=== PATIENT | male | born 1945 | race Caucasian/White ===

== ENCOUNTER 2019-07-24 09:38 | Day surgery (SDC) | payer MEDICARE ==
[~2019-07-24] VITALS: Ht 167.6 cm; Wt 73.5 kg
[~2019-07-24 09:38] MED LIST: ADV250INH INH; ASPI81TA26 PO; ATEN50TA2 PO; COLA100C5 PO; HYDR-2541 PO; HYDR-3713 PO; HYDR25TAB PO; OMEP-172 PO; OMEP-221 PO; RANI150T PO; ULTR50TA8 PO; VITA100066 PO
[2019-07-24] MEDS ORDERED: PROPOFOL 200 MG/20 ML VIAL As Ordered ONE (09:43)
[2019-07-24] MEDS ORDERED: LIDOCAINE 2% INJ 100 MG/5 ML SDV (FOR ANES.) As Ordered ONE (09:44)
[2019-07-24] MEDS ORDERED: NS 1,000 ML IV ONE (11:00)
--- NOTE | 2019-07-24 11:33 | ROOR ---
Patient Name: Abdi Rodgers Procedure Date: 07/24/2019 11:01 AM Date of : 1945 Age: 74 Room: [facility] Gender: Male Note Status: Finalized Procedure: Colonoscopy Indications: Screening for colorectal malignant neoplasm Providers: Ronnell TALAVERA MD Referring MD: KARIN HALL NP Requesting Provider: Medicines: Monitored Anesthesia Care Complications: No immediate complications. Procedure: Pre-Anesthesia Assessment: - The heart rate, respiratory rate, oxygen saturations, blood pressure, adequacy of pulmonary ventilation, and response to care were monitored throughout the procedure. The Colonoscope was introduced through the anus and advanced to the cecum, identified by appendiceal orifice and ileocecal valve. The colonoscopy was performed without difficulty. The patient tolerated the procedure well. The quality of the bowel preparation was good. Findings: The perianal and digital rectal examinations were normal. Seven sessile polyps were found in the sigmoid colon and ascending colon. The polyps were 4 to 6 mm in size. These polyps were removed with a cold snare. Resection and retrieval were complete. Multiple medium-mouthed diverticula were found in the sigmoid colon. Internal hemorrhoids were found during retroflexion. The hemorrhoids were medium-sized. The exam was otherwise without abnormality. Impression: - Seven 4 to 6 mm polyps in the sigmoid colon and in the ascending colon, removed with a cold snare. Resected and retrieved. - Diverticulosis in the sigmoid colon. - Internal hemorrhoids. - The examination was otherwise normal. Recommendation: - Repeat colonoscopy in 3 years for surveillance. Ronnell Talavera MD Ronnell TALAVERA MD 07/24/2019 11:33:22 AM Electronically signed by Ronnell TALAVERA MD Number of Addenda: 0 Note Initiated On: 07/24/2019 11:01 AM Estimated Blood Loss: Estimated blood loss: none.
[2019-07-24 11:50] VITALS: BP 114/72
== END 2019-07-24 12:08 | disposition home or self-care (01) ==
LOC: M OPP 09:38
PROVIDERS: ATTEND Internal Medicine Gastroenterology
DX: Z12.11 Encounter for screening for malignant neoplasm of colon (principal); D12.5 Benign neoplasm of sigmoid colon; D12.2 Benign neoplasm of ascending colon; K64.8 Other hemorrhoids; K57.30 Diverticulosis of large intestine without perforation or abscess without bleeding; Z79.82 Long term (current) use of aspirin; Z79.899 Other long term (current) drug therapy

== ENCOUNTER 2019-07-29 18:54 | Observation (INO) | payer MEDICARE ==
[~2019-07-29] VITALS: Ht 167.6 cm; Wt 68.7 kg
[2019-07-29] MEDS: DOCUSATE SODIUM 100 MG CAP PO SCH (00:47)
[~2019-07-29 18:54] MED LIST changes: -OMEP-172 PO; +OMEP1CAP73 PO
[2019-07-29] MEDS ORDERED: NS 500 ML IV ONE (19:45)
[2019-07-29 20:00] LABS: BASO % 0.1 % (0.0-1.0); EOS # 0.1 10^3/uL (0.0-0.5); EOS % 0.6 % (0.0-3.0); LYMPH # 1.6 10^3/uL (1.5-5.0); LYMPH % 19.8 % (24.0-44.0); MEAN CORPUSCULAR HEMOGLOBIN 28.6 pg (27.0-33.0); MEAN CORPUSCULAR HGB CONC 32.6 g/dl (32.0-36.5); MEAN CORPUSCULAR VOLUME 87.9 fl (80.0-96.0); MONO # 0.5 10^3/uL (0.0-0.8); NEUTROPHILS % 73.3 % (36.0-66.0); PLATELET COUNT, AUTOMATED 188 10^3/uL (150-450); RED BLOOD COUNT 4.89 10^6/uL (4.30-6.10); WHITE BLOOD COUNT 8.1 10^3/uL (4.0-10.0)
[2019-07-29] MEDS ORDERED: ADVAIR HFA 115/21MCG INHALER INH SCH (20:00)
[2019-07-29 20:12] LABS: INR 0.94; PARTIAL THROMBOPLASTIN TIME 28.7 SECONDS (25.0-38.4); PROTHROMBIN TIME 12.3 SECONDS (11.8-14.0)
[2019-07-29 20:19] LABS: BLOOD UREA NITROGEN 22 MG/DL (7-18); CALCIUM LEVEL 8.4 MG/DL (8.8-10.2); CARBON DIOXIDE LEVEL 25 MEQ/L (21-32); CHLORIDE LEVEL 106 MEQ/L (98-107); CREATININE FOR GFR 1.29 MG/DL (0.70-1.30); GLOMERULAR FILTRATION RATE 58.1 (>42); GLUCOSE, FASTING 129 MG/DL (70-100); POTASSIUM SERUM 3.6 MEQ/L (3.5-5.1); SODIUM LEVEL 138 MEQ/L (136-145)
[2019-07-29] MEDS ORDERED: PEPC1TAB5 PO (20:20)
[2019-07-29] MEDS ORDERED: NS 1,000 ML IV SCH (21:20)
[2019-07-29] MEDS ORDERED: MAALOX 30 ML SUSP *UDC PO PRN (21:30)
[2019-07-29] MEDS ORDERED: ACETAMINOPHEN TAB 650MG DOSE (2X325MG) PO PRN (21:30)
[2019-07-29] MEDS ORDERED: MOM 30ML SUSPENSION UDC PO PRN (21:30)
[2019-07-29] MEDS ORDERED: NS 1,000 ML IV ONE (21:30)
[2019-07-29] MEDS ORDERED: propofoL 200 MG/20 ML VIAL As Ordered ONE (21:43)
[2019-07-29] MEDS ORDERED: LIDOCAINE 2% INJ 100 MG/5 ML SDV (FOR ANES.) As Ordered ONE (21:47)
[2019-07-29] MEDS ORDERED: fentaNYL 100 MCG/2 ML INJECTION (J3010) As Ordered ONE ×2 (21:50→23:41)
--- NOTE | 2019-07-29 22:09 | HPEPDOC ---
[facility] Medical History & Physical Date of Admission Jul 29, 2019 Date of Service: Jul 29, 2019 History and Physical Patient is a 74-year-old male with past medical history of eczema/COPD not dependent on oxygen, hypertension, POD#5 status post colonoscopy presenting with bright red bleeding per rectum. Patient reports that earlier today he noticed bleeding around 17:00, called his administrative director and was instructed to come to the ED. During this time, he denies any lightheadedness, dizziness, abdominal pain, dysuria, but subsequently reports chills and anxiety. Did have an episode of lightheadedness in the ED while orthostatics were performed. In the ED, initially vital signs revealed afebrile, no tachycardia, blood pressure of 182/81, subsequent recheck of blood pressure reveals orthostatic hypotension and subsequently given IV fluids. He also had a few bowel movements that also were bright red blood with clots with gross blood on physical exam. H&P obtained by patient, and daughter present during interview. Labs include no leukocytosis, WBC of 8.1, hemoglobin 14.4 and hematocrit 43, platelets 188, BUN 22, use existing specimen elevated, creatinine 1.29, fasting glucose 129, lactic acid 2.1, calcium 8.4, coagulation factors grossly within normal limits. Chest x-ray and abdominal x-ray pending official read, chest x- ray appears to be NAD. Prior to my exam, patient had another gross bowel movement, GI was consulted, plan for colonoscopy later tonight. Vital signs stable. ROS: 10 point review systems negative except per above. PMH: See above. PSH: See above, circumcision in 1974, hernia repair x2 in 2000, complicated by testicular torsion status post left orchiectomy, tonsillectomy at age 66, facial skin biopsy suspicion for skin cancer 07/26/2019 Family history: Reviewed and noncontributory, patient has no family history of colon cancer, autoimmune GI diseases such as ulcerative colitis, but family history of leukemia, and lung cancer. Social history: Former tobacco use, quit 30+ years ago, former alcohol use, quit 15 years ago, no illicits, is , has 2 children, was a inside contractor sales by profession Medications: Reviewed Allergies: Phenobarbital: Hives PHYSICAL EXAMINATION: VITAL SIGNS: Please see below. GENERAL: male in No distress, able to speak in full sentences HEENT: Normocephalic, atraumatic, moist mucous membranes, Mallampati score 4, no pallor NECK: Supple CARDIOVASCULAR EXAMINATION: S1, S2 RESPIRATORY EXAMINATION: CTAB ABDOMINAL EXAMINATION: Soft, nontender, nondistended, slightly hyperactive bowel sounds EXTREMITIES: no edema SKIN: No rash NEUROLOGICAL EXAMINATION: Awake PSYCHIATRIC EXAMINATION: Anxious, appropriate affect Patient is a 74-year-old male with past medical history of eczema/COPD not dependent on oxygen, hypertension, status post colonoscopy , presenting with lower GI bleed. #lower GI bleed, consider secondary to status post cholecystectomy with polyp removal, medication induce, patient currently on aspirin. Will hold aspirin, GI was consulted, nothing by mouth last ate at 4 PM, monitor hemoglobin and hematocrit, gentle hydration IV fluids. Fall precautions. # reveals adenomatous polyps/tubular adenoma polyps on pathology s/p colonoscopy: obtain baseline CEA level. #Orthostatic hypotension/Hx of HTN: Hold blood pressure medications #GERD: Hold by mouth medications, start IV GI prophylaxis #COPD: Continue home meds DVT prophylaxis: SCDs, hold pharmacological DVT prophylaxis at this time due to GI bleed. Code full Vital Signs Vital Signs Date Time Temp Pulse Resp B/P (MAP) Pulse Ox O2 Delivery O2 Flow Rate FiO2 07/29/19 21:29 57 20 150/75 (100) 07/29/19 18:55 98.4 95 Room Air Laboratory Data Labs 24H Laboratory Tests 2 07/29/19 19:48: Immature Granulocyte % (Auto) 0.2, Neutrophils (%) (Auto) 73.3H, Lymphocytes (%) (Auto) 19.8L, Monocytes (%) (Auto) 6.0H, Eosinophils (%) (Auto) 0.6, Basophils (%) (Auto) 0.1, Neutrophils # (Auto) 6.0, Lymphocytes # (Auto) 1.6, Monocytes # (Auto) 0.5, Eosinophils # (Auto) 0.1, Basophils # (Auto) 0.0, Nucleated Red Blood Cells % (auto) 0.0, Prothrombin Time 12.3, Prothromb Time International Ratio 0.94, Activated Partial Thromboplast Time 28.7, Anion Gap 7L, Glomerular Filtration Rate 58.1, Lactic Acid Level 2.1*H, Calcium Level 8.4L CBC/BMP Laboratory Tests 07/29/19 19:48 Home Medications Scheduled Aspirin (Aspirin EC) 81 Mg Tab, 81 MG PO DAILY Atenolol (Atenolol) 50 Mg Tab, 50 MG PO DAILY Cholecalciferol (Vitamin D3) (Vitamin D3) 1,000 Unit Tab, 2,000 UNIT PO DAILY Famotidine (Pepcid) 20 Mg Tablet, 20 MG PO DAILY Hydrochlorothiazide (Hydrochlorothiazide) 25 Mg Tablet, 25 MG PO DAILY Omeprazole (Omeprazole) 40 Mg Capsule.dr, 40 MG PO DAILY Salmeterol/Fluticasone (Advair 250-50 Diskus) 14 Puff/Inhaler Aerp, 1 PUFF INH BID Allergies Coded Allergies: phenobarbital (Verified Allergy, Intermediate, HIVES, 07/09/19) A-FIB/CHADSVASC A-FIB History Current/History of A-Fib/PAF?: No MARCIE MCKINLEY MD Jul 29, 2019 21:31
[2019-07-29 23:00] LABS: ALBUMIN 3.4 GM/DL (3.2-5.2); ALT/SGPT 16 U/L (12-78); BILIRUBIN,DIRECT < 0.1 MG/DL (0.0-0.2); BILIRUBIN,TOTAL 0.1 MG/DL (0.2-1.0); TOTAL PROTEIN 6.7 GM/DL (6.4-8.2)
[2019-07-29] MEDS ORDERED: ONDANSETRON 4MG/2ML VIAL (J2405) As Ordered ONE (23:06)
[2019-07-29] MEDS ORDERED: LR 1,000 ML IV SCH (23:30)
[2019-07-29] MEDS ORDERED: ONDANSETRON 4MG/2ML VIAL (J2405) IV PRN (23:30)
[2019-07-29] MEDS: fentaNYL 100 MCG/2 ML INJECTION (J3010) IV PRN ×2 (23:42→23:47)
[2019-07-30] VITALS (7 sets, daily range): BP systolic 131–147; BP diastolic 65–78
[2019-07-30] MEDS ORDERED: ONDANSETRON 4MG/2ML VIAL (J2405) As Ordered ONE (00:18)
[2019-07-30] MEDS: PANTOPRAZOLE 40MG INJ (PROTONIX) (C9113) IV SCH ×2 (00:52→08:09)
[2019-07-30] MEDS ORDERED: NS 1,000 ML IV SCH (03:45)
[2019-07-30 04:43] LABS: HEMATOCRIT 38.1 % (42.0-52.0); HEMOGLOBIN 12.5 g/dl (13.5-17.5); MEAN CORPUSCULAR HEMOGLOBIN 28.9 pg (27.0-33.0); MEAN CORPUSCULAR HGB CONC 32.8 g/dl (32.0-36.5); PLATELET COUNT, AUTOMATED 169 10^3/uL (150-450); RED BLOOD COUNT 4.33 10^6/uL (4.30-6.10); WHITE BLOOD COUNT 15.9 10^3/uL (4.0-10.0)
[2019-07-30 05:08] LABS: BLOOD UREA NITROGEN 19 MG/DL (7-18); CALCIUM LEVEL 7.3 MG/DL (8.8-10.2); CARBON DIOXIDE LEVEL 25 MEQ/L (21-32); CHLORIDE LEVEL 107 MEQ/L (98-107); CREATININE FOR GFR 1.03 MG/DL (0.70-1.30); GLOMERULAR FILTRATION RATE > 60.0 (>42); GLUCOSE, FASTING 114 MG/DL (70-100); POTASSIUM SERUM 3.9 MEQ/L (3.5-5.1); SODIUM LEVEL 139 MEQ/L (136-145)
--- NOTE | 2019-07-30 08:00 | ROOR ---
Patient Name: Abdi Rodgers Procedure Date: 07/29/2019 10:04 PM Date of : 1945 Age: 74 Gender: Male Note Status: Finalized Procedure: Total Colonoscopy to Cecum Indications: Rectal bleeding Providers: Chidi Franco MD Referring MD: 2. Inpatient 2. Inpatient Requesting Provider: Medicines: General Anesthesia Complications: No immediate complications. Procedure: Pre-Anesthesia Assessment: - The heart rate, respiratory rate, oxygen saturations, blood pressure, adequacy of pulmonary ventilation, and response to care were monitored throughout the procedure. The Colonoscope was introduced through the anus and advanced to the cecum, identified by appendiceal orifice and ileocecal valve. The colonoscopy was performed without difficulty. The patient tolerated the procedure well. The quality of the bowel preparation was inadequate. Findings: The perianal and digital rectal examinations were normal. Non-bleeding internal hemorrhoids were found during retroflexion. The hemorrhoids were small and Grade I (internal hemorrhoids that do not prolapse). Multiple small and large-mouthed diverticula were found in the recto-sigmoid colon, sigmoid colon and descending colon. Red blood was found in the entire colon. The exam was otherwise without abnormality on direct and retroflexion views. Impression: - Preparation of the colon was inadequate. - Non-bleeding internal hemorrhoids. - Diverticulosis in the recto-sigmoid colon, in the sigmoid colon and in the descending colon. - Blood in the entire examined colon. - The examination was otherwise normal on direct and retroflexion views. - No specimens collected. - The exam was otherwise normal to the cecum. Recommendation: - Patient has a contact number available for emergencies. The signs and symptoms of potential delayed complications were discussed with the patient. Return to normal activities tomorrow. Written discharge instructions were provided to the patient. - High fiber diet. - [facility] to [facility] care. - Continue present medications. - The findings and recommendations were discussed with the referring physician. - The findings and recommendations were discussed with the patient's family. Chidi Franco MD Chidi Franco MD 07/30/2019 8:00:02 AM Electronically signed by Chidi Franco MD Number of Addenda: 0 Note Initiated On: 07/29/2019 10:04 PM Estimated Blood Loss: Estimated blood loss: none.
[2019-07-30] MEDS: DOCUSATE SODIUM 100 MG CAP PO SCH ×2 (08:09→20:09)
--- NOTE | 2019-07-30 08:14 | REP ---
Abdomen series: Three views. History: Rectal bleeding. Findings: Upright chest radiograph shows biapical pleuroparenchymal fibrosis and emphysematous changes. Pleural angles are sharp. No infiltrate is seen. No free subdiaphragmatic air is seen. Heart size is normal. Supine and erect views of the abdomen show hernia repair sutures over the suprapubic region. Bowel gas pattern is normal. Psoas margins and flank stripes are intact. No mass, organomegaly, or pathologic calcification is seen. No significant air fluid level is seen. Some vascular calcification is noted. Impression: No significant abnormality. Electronically Signed by Gonzalo Mendez MD 07/30/2019 08:06 A
--- NOTE | 2019-07-30 08:40 | IPN ---
DATE: 07/30/2019 Abdi is seen in progressive care unit (PCU). He is admitted with lower gastrointestinal (GI) bleed. He had a colonoscopy on 07/24/2019, had polyps removed. He presented with bright red blood per rectum yesterday. Looks to have had a colonoscopy last night in the operating room. No operative report but per the admission history and physical addendum no bleeding source was seen. The patient said he had a blood stool earlier this morning before getting up. Denies any fever, chills or abdominal pain. PHYSICAL EXAM: 141/70, pulse 67, respiratory rate 18, 94% oxygen saturation. Alert, conversant, in no distress. Lungs: Clear. Heart: Regular rhythm. Abdomen: Soft, nontender. No masses. No peripheral edema. IMPRESSION: 1. Lower GI bleed, probably diverticular. Certainly seems to be a lower GI source. Will stop the IV Protonix and put him on oral Protonix. He is well hydrated, so we can stop the IV fluids and put him on a diet advancing as tolerated. Serial complete blood counts (CBCs) have been ordered. 2. cytosis, probably reactive. No sign of active infection. 3. Chronic obstructive pulmonary disease (COPD). Continue his nebulized bronchodilator. Titrate oxygen if possible. Should be able to discharge tomorrow if he does not have any further significant rectal bleeding.
[2019-07-30] MEDS ORDERED: ONDANSETRON 4MG/2ML VIAL (J2405) IV PRN (10:30)
[2019-07-30] MEDS: atenoloL 50 MG TAB PO SCH (10:36)
[2019-07-30] MEDS: ADVAIR HFA 115/21MCG INHALER INH SCH ×2 (11:31→20:38)
[2019-07-30] MEDS: CALCIUM CARBONATE 500 MG CHEW U/D PO PRN (20:09)
[2019-07-31] VITALS: BP 130/59
[2019-07-31 04:00] VITALS: BP 129/62
[2019-07-31 06:14] LABS: HEMATOCRIT 36.5 % (42.0-52.0); HEMOGLOBIN 12.3 g/dl (13.5-17.5); MEAN CORPUSCULAR HEMOGLOBIN 29.6 pg (27.0-33.0); MEAN CORPUSCULAR HGB CONC 33.7 g/dl (32.0-36.5); PLATELET COUNT, AUTOMATED 173 10^3/uL (150-450); RED BLOOD COUNT 4.15 10^6/uL (4.30-6.10); WHITE BLOOD COUNT 7.8 10^3/uL (4.0-10.0)
[2019-07-31 06:38] LABS: BLOOD UREA NITROGEN 12 MG/DL (7-18); CALCIUM LEVEL 8.4 MG/DL (8.8-10.2); CARBON DIOXIDE LEVEL 26 MEQ/L (21-32); CHLORIDE LEVEL 108 MEQ/L (98-107); CREATININE FOR GFR 1.01 MG/DL (0.70-1.30); GLOMERULAR FILTRATION RATE > 60.0 (>42); GLUCOSE, FASTING 87 MG/DL (70-100); POTASSIUM SERUM 3.6 MEQ/L (3.5-5.1); SODIUM LEVEL 140 MEQ/L (136-145)
[2019-07-31] MEDS: ADVAIR HFA 115/21MCG INHALER INH SCH (07:43)
[2019-07-31 07:58] VITALS: BP 151/73
[2019-07-31] MEDS: atenoloL 50 MG TAB PO SCH (08:02)
[2019-07-31] MEDS: DOCUSATE SODIUM 100 MG CAP PO SCH (08:03)
[2019-07-31] MEDS ORDERED: PANTOPRAZOLE 40MG TAB (PROTONIX) PO SCH (09:00)
[2019-07-31] MEDS: CALCIUM CARBONATE 500 MG CHEW U/D PO PRN (09:57)
--- NOTE | 2019-07-31 10:28 | IPNPDOC ---
Subjective Date Seen The patient was seen on 07/31/19. Subjective Chief Complaint/HPI Resting in chair, at bedside. No GI bleed noted. No c/o abd pain. Tolerating diet. Objective Physical Examination General Exam: Positive: Alert, Cooperative, No Acute Distress Neck Exam: Positive: Supple, JVD Chest Exam: Positive: Clear to auscultation Heart Exam: Positive: Rate Normal Abdomen Exam: Positive: Normal bowel sounds, Soft; Negative: Tenderness Extremity Exam: Negative: Clubbing, Cyanosis, Edema, Normal pulses, Tenderness, Swelling, Other Assessment /Plan Assessment GI bleed following polypectomy - s/p c-scope with no findings of acute bleeding - stable hgb - home today - may resume baby asa in 4 days Plan/VTE VTE Prophylaxis Ordered?: No (gi bleed) Disposition home today VS, I&O, 24H, Fishbone Vital Signs/I&O Vital Signs Date Time Temp Pulse Resp B/P (MAP) Pulse Ox O2 Delivery O2 Flow Rate FiO2 07/31/19 07:58 97.8 60 18 151/73 (99) 94 Room Air 07/30/19 04:00 2.0 I&O- Last 24 Hours up to 6 AM 07/31/19 06:00 Intake Total 870 ml Output Total 1950 ml Balance -1080 ml Laboratory Data 24H LABS Laboratory Tests 2 07/31/19 05:49: Nucleated Red Blood Cells % (auto) 0.0, Anion Gap 6L, Glomerular Filtration Rate > 60.0, Calcium Level 8.4#L CBC/BMP Laboratory Tests 07/30/19 17:34 07/31/19 05:49 LONNIE URIBE MD Jul 31, 2019 10:28
--- NOTE | 2019-08-05 21:45 | DSES ---
DATE OF ADMISSION: 07/29/2019 DATE OF DISCHARGE: 07/31/2019 DISCHARGE DIAGNOSES: 1. Lower gastrointestinal (GI) bleed likely secondary to diverticular bleed. 2. Status post repeat colonoscopy. CONSULTANTS: On the case: Chidi Franco MD PROCEDURES PERFORMED: During this hospitalization: Colonoscopy. DISPOSITION: Patient is discharged home in stable condition. He is instructed to resume his baby aspirin in approximately 4 days and to followup with his primary care provider (PCP) in the next week. IMAGING STUDIES: Obtained during the patient's hospital stay were an abdominal x-ray which showed no significant abnormality. RELEVANT LABORATORIES: Are the following: Sodium 140, potassium 2.6, chloride 180, bicarbonate 26, BUN 12, creatinine 1, calcium 8.4, CEA level was 1.6, lactic acid was 2.1 and improved to 1.3 with hydration. Coagulations were normal. Hemoglobin was 12.3, hematocrit 36.5, platelet counts were 173,000, white blood cell count was 7.8. HOSPITAL COURSE: Mr. Rodgers is a very pleasant, 74-year-old gentleman who had undergone an elective outpatient colonoscopy 5 days prior to admission with a polypectomy. Patient subsequently presented to the hospital with complaints of bright red blood per rectum. In the emergency room (ER) department, he was noted to have hematochezia. Initially, his vital signs were hemodynamically stable, however when they were rechecked the patient was noted to be orthostatic. He was given IV fluids. Lactic acid was noted to be mildly elevated and improved with hydration. The patient did not require any transfusion during his hospital stay, his aspirin was held. His CBC was followed serially. Dr. Franco was contacted. Patient was taken to the operating room (OR) for endoscopy. He was found to have blood throughout his whole colon, but no evidence of any active bleeding. Post-procedure patient was monitored with serial CBCs which remained stable and he was started on a diet which was advanced without complications. Patient was then discharged home in stable condition. Total of 30 minutes was spent completing all discharge paperwork.
== END 2019-07-31 13:50 | disposition home or self-care (01) ==
LOC: M ED 18:54 → M ED INP 18:55 → ENRESERV 21:42 → M PCU 07-30 00:26
PROVIDERS: ADMIT Family Medicine; ATTEND Family Medicine
DX: K62.5 Hemorrhage of anus and rectum (principal); K64.0 First degree hemorrhoids; K57.30 Diverticulosis of large intestine without perforation or abscess without bleeding; Z86.010 Personal history of colon polyps; I95.9 Hypotension, unspecified; L30.9 Dermatitis, unspecified; I10 Essential (primary) hypertension; K21.9 Gastro-esophageal reflux disease without esophagitis; J44.9 Chronic obstructive pulmonary disease, unspecified; Z79.899 Other long term (current) drug therapy; Z79.82 Long term (current) use of aspirin; Z79.51 Long term (current) use of inhaled steroids; Z88.8 Allergy status to other drugs, medicaments and biological substances
CPT/HCPCS: 36415; 45378; 74021; 80048; 80076; 82378; 83605; 85018; 85025; 85027; 85610; 85730; 86850; 86900; 86901; 94640; 96361; 96374; 96375; 96376; 99285; C9113; G0378; J2405; J3010

== ENCOUNTER → 2021-05-11 | Outpatient (CLI) | payer MEDICARE ==
[~2021-05-11] MED LIST changes: +HYDR-3490 PO; -HYDR25TAB PO; +PEPC1TAB5 PO
--- NOTE | 2021-05-11 15:21 | REP ---
INDICATION: CKD 3A. COMPARISON: None. TECHNIQUE: Real-time sonographic evaluation of the kidneys is performed. FINDINGS: Renal cortical echogenicity pattern is normal bilaterally and contours are smooth. There is no hydronephrosis bilaterally. There is a possible solid renal nodule in the right lower pole measuring 2.0 x 1.9 x 1.6 cm. There is an exophytic cyst of the upper pole the left kidney 2.6 x 2.8 x 2.7 cm. A cyst in the mid left kidney measures 1.2 cm and in the lower pole 6 mm. The right kidney measures 9.4 x 4.8 x 4.3 cm. Left renal dimensions are 9.9 x 3.6 x 5.2 cm. The urinary bladder is empty. IMPRESSION: Possible solid mass lower pole right kidney 2 cm in diameter. Recommend dedicated MRI of the kidneys with and without contrast. Left renal cysts. <Electronically signed by Orion Apodaca > 05/11/21 [id number]
== END ==
LOC: M RAD 13:09
PROVIDERS: ATTEND Internal Medicine Nephrology
DX: N18.31 Chronic kidney disease, stage 3a (principal); N28.89 Other specified disorders of kidney and ureter

== ENCOUNTER → 2021-05-29 | Outpatient (CLI) | payer MEDICARE ==
[~2021-05-29] MED LIST changes: +PROHANCE 279.3MG/ML 15ML VIAL ONE
--- NOTE | 2021-05-29 12:37 | REP ---
INDICATION: NEHA OF LT KIDNEY. COMPARISON: Prior ultrasound obtained 05/11/2021 reviewed. TECHNIQUE: Pre and post contrast 3T MRI of the kidneys was performed utilizing various sequences. Gadolinium utilized: 7 cc ProHance FINDINGS: The patient was unable to follow the breathing instructions to eliminate motion artifact. There is significant respiratory motion artifact throughout the exam. Arising from the superior pole of the left kidney there is a 3 cm sized nodule which is solid in appearance and possibly enhancing on the later phase dynamically enhanced images. This is difficult to completely assess due to the motion artifact. There is evidence of multiple smaller bilateral renal cysts. There is cholelithiasis. There is no gross enhancing mass. There is no gross pancreatic abnormality. There is evidence of para-aortic adenopathy. There is no free fluid. The adrenal glands are within normal limits. IMPRESSION: 1. The exam is limited as described above. 2. Suspicious possibly enhancing left renal mass as described above. Since CT is somewhat less sensitive to motion artifact than is MRI, pre and post contrast enhanced renal CT should be considered at this time. Follow-up is recommended. 3. There is cholelithiasis. 4. There is evidence of para-aortic adenopathy. This is also difficult to evaluate due to the motion artifact. <Electronically signed by Vu Campo > 05/29/21 [id number]
== END ==
LOC: M PLAIMG 10:33
PROVIDERS: ATTEND Internal Medicine Nephrology
DX: D41.02 Neoplasm of uncertain behavior of left kidney (principal); K80.80 Other cholelithiasis without obstruction; N28.89 Other specified disorders of kidney and ureter
CPT/HCPCS: 74183; A9576

== ENCOUNTER → 2021-07-14 | Outpatient (CLI) | payer MEDICARE ==
[~2021-07-14] MED LIST changes: +ISOVUE-370 76% 100ML VIAL As Ordered ONE; -OMEP-221 PO; +OMEP40CA5 PO; -PROHANCE 279.3MG/ML 15ML VIAL ONE
== END ==
LOC: M RAD 12:41
PROVIDERS: ATTEND Internal Medicine Nephrology
DX: C64.2 Malignant neoplasm of left kidney, except renal pelvis (principal)
CPT/HCPCS: 74178; Q9967

== ENCOUNTER → 2021-12-03 | Outpatient (CLI) | payer MEDICARE ==
[~2021-12-03] MED LIST changes: -ISOVUE-370 76% 100ML VIAL As Ordered ONE
[2021-12-03 13:11] LABS: FREE T4 1.01 NG/DL (0.76-1.46); THYROID STIMULATING HORMONE 0.84 uIU/ML (0.358-3.740)
[2021-12-04 18:51] LABS: FOLATE 12.2 NG/ML
== END ==
LOC: M LAB 11:46
PROVIDERS: ATTEND Psychiatry & Neurology Neurology
DX: E03.9 Hypothyroidism, unspecified (principal); E53.9 Vitamin B deficiency, unspecified

== ENCOUNTER → 2022-01-04 | Outpatient (CLI) | payer MEDICARE ==
[2022-01-04 09:35] LABS: CREATININE FOR GFR 1.34 MG/DL (0.70-1.30); GLOMERULAR FILTRATION RATE 55.3 (>42)
== END ==
LOC: M LAB 08:39
PROVIDERS: ATTEND Psychiatry & Neurology Neurology
DX: I10 Essential (primary) hypertension (principal)

== ENCOUNTER → 2022-03-09 | Outpatient (CLI) | payer MEDICARE | LOC: M LAB 12:32 | PROVIDERS: ATTEND Psychiatry & Neurology Neurology | DX: D35.2 Benign neoplasm of pituitary gland (principal) ==

== ENCOUNTER → 2022-09-15 | Outpatient (CLI) | payer MEDICARE ==
[~2022-09-15] MED LIST changes: +CARB25TA18 PO; +CYAN500T14 PO; +LOSA50TA28 PO; +VITA100093 PO; +VITA400T26 PO
== END ==
LOC: M LABSMTC 10:27
PROVIDERS: ATTEND Anesthesiology
DX: Z01.812 Encounter for preprocedural laboratory examination (principal)

== ENCOUNTER 2022-09-20 10:25 | Day surgery (SDC) | payer MEDICARE ==
[~2022-09-20] VITALS: Ht 165.1 cm; Wt 71.6 kg
[~2022-09-20 10:25] MED LIST changes: +BUDESONIDE 0.5 MG/2 ML INHALATION SUSPENSION INH SCH; +NS 1,000 ML IV ONE
[2022-09-20] MEDS ORDERED: propofoL 200 MG/20 ML VIAL As Ordered ONE ×2 (11:06→13:29)
[2022-09-20] MEDS ORDERED: LIDOCAINE 2% 100MG/5ML SDV (FOR ANES.) As Ordered ONE (11:06)
[2022-09-20] MEDS ORDERED: IPRATROPIUM 0.5MG/ALBUTEROL 2.5MG INH SOL UD 3ML (DUONEB) NEB ONE (12:15)
[2022-09-20 13:55] VITALS: BP 118/58
== END 2022-09-20 14:07 | disposition home or self-care (01) ==
LOC: M OPP 10:25
PROVIDERS: ATTEND Internal Medicine Gastroenterology
DX: Z12.11 Encounter for screening for malignant neoplasm of colon (principal); Z86.010 Personal history of colon polyps; Z80.0 Family history of malignant neoplasm of digestive organs; D12.2 Benign neoplasm of ascending colon; K63.5 Polyp of colon; K64.8 Other hemorrhoids; I10 Essential (primary) hypertension; J44.9 Chronic obstructive pulmonary disease, unspecified; G20 Parkinson's disease; Z79.52 Long term (current) use of systemic steroids; Z79.82 Long term (current) use of aspirin; Z79.899 Other long term (current) drug therapy; Z88.8 Allergy status to other drugs, medicaments and biological substances

== ENCOUNTER → 2022-10-14 | Outpatient (CLI) | payer MEDICARE ==
[~2022-10-14] MED LIST changes: -BUDESONIDE 0.5 MG/2 ML INHALATION SUSPENSION INH SCH; -NS 1,000 ML IV ONE
[2022-10-14 14:48] LABS: FOLATE 16.6 NG/ML (>5.4); PROLACTIN 4.1 NG/ML (2.1-17.7)
[2022-10-14 14:52] LABS: CREATININE FOR GFR 1.52 MG/DL (0.70-1.30); GLOMERULAR FILTRATION RATE 47.7 (>42)
== END ==
LOC: M LAB 12:44
PROVIDERS: ATTEND Psychiatry & Neurology Neurology
DX: E51.9 Thiamine deficiency, unspecified (principal); E56.0 Deficiency of vitamin E

== ENCOUNTER → 2022-11-30 | Outpatient (CLI) | payer MEDICARE | LOC: M LAB 09:09 | PROVIDERS: ATTEND Nurse Practitioner Family | DX: D35.2 Benign neoplasm of pituitary gland (principal) ==

== ENCOUNTER → 2023-11-16 | Outpatient (CLI) | payer MEDICARE ==
[2023-11-16 09:20] LABS: BASO % 0.3 % (0.0-1.0); EOS % 0.4 % (0.0-3.0); HEMATOCRIT 39.5 % (42.0-52.0); HEMOGLOBIN A1c 5.3 % (4.0-6.0); LYMPH # 1.5 10^3/uL (1.5-5.0); LYMPH % 21.2 % (24.0-44.0); MEAN CORPUSCULAR HEMOGLOBIN 28.7 pg (27.0-33.0); MEAN CORPUSCULAR HGB CONC 32.9 g/dl (32.0-36.5); MEAN CORPUSCULAR VOLUME 87.2 fl (80.0-96.0); MONO # 0.4 10^3/uL (0.0-0.8); NEUTROPHILS # 5.1 10^3/uL (1.5-8.5); PLATELET COUNT, AUTOMATED 224 10^3/uL (150-450); RED BLOOD COUNT 4.53 10^6/uL (4.30-6.10); WHITE BLOOD COUNT 7.1 10^3/uL (4.0-10.0)
[2023-11-16 09:36] LABS: ALBUMIN 3.5 G/DL (3.2-5.2); ALKALINE PHOSPHATASE 51 U/L (46-116); ALT/SGPT < 9 U/L (7.0-40); AST/SGOT 9 U/L (<34); BILIRUBIN,TOTAL 0.6 MG/DL (0.3-1.2); BLOOD UREA NITROGEN 25 MG/DL (9-23); CALCIUM LEVEL 9.8 MG/DL (8.3-10.6); CARBON DIOXIDE LEVEL 28 MMOL/L (20-31); CHLORIDE LEVEL 105 MMOL/L (98-107); CHOLESTEROL LEVEL 141 MG/DL (<200); CHOLESTEROL RISK RATIO 3.23 (<5); CREATININE FOR GFR 1.48 MG/DL (0.70-1.30); GLOMERULAR FILTRATION RATE 49.1 (>42); GLUCOSE, FASTING 95 MG/DL (74-106); HDL CHOLESTEROL 43.6 MG/DL (>40); LDL CHOLESTEROL 85.4 MG/DL (<100); NON-HDL-C 97.4 MG/DL; POTASSIUM SERUM 4.7 MMOL/L (3.5-5.1); SODIUM LEVEL 139 MMOL/L (136-145); TOTAL PROTEIN 6.7 G/DL (5.7-8.2); TRIGLYCERIDES LEVEL 60 MG/DL (<150)
[2023-11-16 09:37] LABS: VITAMIN B12 LEVEL 409 PG/ML (211-911)
== END ==
LOC: M LAB 07:58
PROVIDERS: ATTEND Registered Nurse
DX: R73.03 Prediabetes (principal); E55.9 Vitamin D deficiency, unspecified; D51.9 Vitamin B12 deficiency anemia, unspecified; E78.00 Pure hypercholesterolemia, unspecified; Z79.899 Other long term (current) drug therapy